=== PATIENT | female | born 1990 | race Hispanic/Latino ===

== ENCOUNTER → 2018-11-04 | Outpatient (CLI) | payer SELFPAY ==
[2018-11-04 11:49] LABS: HEMOGLOBIN 13.4 g/dL (12.0-15.0); MEAN CELL HGB 31.4 pg (26-34); MEAN CELL HGB CONCENTRATION 35.4 g/dL (33-37); MEAN CORP VOLUME 88.5 fL (78-100); RED CELL DISTRIBUTION WIDTH 12.6 % (11.5-14.5); WHITE BLOOD CELL 7.7 10^3/uL (4.5-11.0)
== END | disposition home or self-care (01) ==
LOC: LAB 11:25
PROVIDERS: ATTEND Obstetrics & Gynecology
DX: Z34.90 Encounter for supervision of normal pregnancy, unspecified, unspecified trimester (principal); Z3A.00 Weeks of gestation of pregnancy not specified
CPT/HCPCS: 36415; 80307; 84702; 85027; 86318; 86592; 86762; 86787; 86900; 87086; 87491; 87591

== ENCOUNTER → 2018-12-31 | Outpatient (CLI) | payer SELFPAY ==
--- NOTE | 2018-12-31 15:18 | DIREP ---
PROCEDURE:OBSTETRICAL ULTRASOUND, 2nd AND 3rd TRIMESTER TECHNIQUE:Transabdominal ultrasound of the pelvic contents was performed. COMPARISON:[facility], US, US OB 1ST TRI TRANS ABD, 10/09/2018, 12:52 PM. INDICATIONS: ANATOMY FINDINGS: NUMBER:Chin. POSITION:Cephalic AMNIOTIC FLUID INDEX:15.7 cm PLACENTA:Anterior, no previa. CERVIX:3.4 cm, closed. HEART RATE:151 bpm BIPARIETAL DIAMETER:4.6 cm (19 W 6 D), 62.2 percentile HEAD CIRCUMFERENCE:17.6 cm (20 W 1 D), 66.1 percentile ABD CIRCUMFERENCE:15.0 cm (20 W 0 D), 67.2 percentile FEMUR LENGTH:3.1 cm (19 W 1 D), 48.4 percentile ESTIMATED WEIGHT:323.8 gm (0 lb, 11oz), 68.0 percentile ULTRASOUND GA:20 W 0 D ULTRASOUND JENY:May 20, 2019 CLINICAL GA: 19 W 4 D CLINICAL JENY: May 22, 2019 *Confirmed by 1st trimester ultrasound performed at [facility] on 10/09/2018. ANATOMY CEREBELLUM:2.2 cm NUCHAL FOLD:4.3 mm CISTERNA MAGNA:3.2 mm LATERAL CEREBRAL VENTRICLES:5.4 mm CHOROID PLEXUS:Normal. MIDLINE FALX:Normal. CAVUM SEPTUM PELLUCIDUM:Present. SPINE:Normal. HEART:Normal. UPPER LIP:Normal. STOMACH:Present. KIDNEYS:Normal - no hydronephrosis. BLADDER:Normal. UMBILICAL CORD INSERTION:Normal. CORD VESSEL NUMBER:3 EXTREMITIES:Present. CONCLUSION: 1. Single viable IUP 20 W 0 D, JENY 05/20/2019 and EFW 323.8 gm (0 lb, 11oz). 2. No anomalies detected. 3. Normal percentile growth calculations based on first trimester sonogram. Dictated by: SIS Physician on 12/31/2018 at 02:58 PM ac
== END | disposition home or self-care (01) ==
LOC: RAD 12:36
PROVIDERS: ATTEND Obstetrics & Gynecology
DX: Z34.82 Encounter for supervision of other normal pregnancy, second trimester (principal); Z3A.20 20 weeks gestation of pregnancy
CPT/HCPCS: 76805